=== PATIENT | female | born 1990 | race Caucasian/White ===

== ENCOUNTER 2017-07-09 04:31 | Emergency (ER) | payer OTHER ==
[~2017-07-09] VITALS: Ht 162.6 cm; Wt 63.7 kg
[2017-07-09 04:33] VITALS: BP 123/82
== END 2017-07-09 05:43 | disposition left against medical advice (07) ==
LOC: ED 05:36
DX: L03.114 Cellulitis of left upper limb (principal); L03.113 Cellulitis of right upper limb
CPT/HCPCS: 99281

== ENCOUNTER 2017-07-09 19:00 | Emergency (ER) | payer OTHER | END 2017-07-09 20:13 | disposition left against medical advice (07) | LOC: ED 20:07 | DX: Z53.21 Procedure and treatment not carried out due to patient leaving prior to being seen by health care provider (principal) ==

== ENCOUNTER 2017-07-10 21:28 | Emergency (ER) | payer MEDICAID, OTHER ==
[~2017-07-10] VITALS: Ht 162.6 cm; Wt 62.7 kg
[2017-07-10 21:32] VITALS: BP 129/85
[2017-07-10] MEDS ORDERED: LIDOCAINE 1%, 20ML INFIL ONE (22:30)
[2017-07-10] MEDS ORDERED: LIDOCAINE 1%, 20ML ONE (23:00)
== END 2017-07-10 23:44 | disposition left against medical advice (07) ==
LOC: ED 21:55
DX: L02.413 Cutaneous abscess of right upper limb (principal); L02.414 Cutaneous abscess of left upper limb; F11.10 Opioid abuse, uncomplicated; F41.9 Anxiety disorder, unspecified; Z59.0 Homelessness; Z86.19 Personal history of other infectious and parasitic diseases
CPT/HCPCS: 99281

== ENCOUNTER 2017-07-11 19:58 | Emergency (ER) | payer MEDICAID, OTHER ==
[~2017-07-11] VITALS: Ht 162.6 cm; Wt 63.4 kg
[2017-07-11 20:16] VITALS: BP 127/86
[2017-07-11] MEDS ORDERED: LIDOCAINE 1%, 20ML SQ ONE (20:30)
[2017-07-11] MEDS ORDERED: SODIUM CHLORIDE 0.9% 1,000ML IVBOLUS ONE (20:30)
[2017-07-11] MEDS ORDERED: SODIUM CHLORIDE FLUSH 10ML SYR IVF ONE (20:30)
[2017-07-11 21:36] LABS: HEMATOCRIT 46.5 % (34.6-47.8); HEMOGLOBIN 15.5 g/dL (11.7-16.4); WHITE BLOOD COUNT 15.9 x10^3/uL (3.4-10)
[2017-07-11 21:47] LABS: BLOOD UREA NITROGEN 8 mg/dL (7-18)
[2017-07-11 21:53] LABS: DIFF TOTAL CELLS COUNTED 100 CELL DIFF
[2017-07-11 21:55] LABS: ANISOCYTOSIS 1+; VERIFY COUNTS? YES
[2017-07-11] MEDS ORDERED: LIDOCAINE 1%, 20ML ONE (22:37)
[2017-07-12] MEDS ORDERED: LIDOCAINE 1%, 20ML SQ ONE
[2017-07-12] MEDS ORDERED: HYDROmorphone 1 MG/ML, 1ML IM ONE
[2017-07-12] MEDS ORDERED: HYDROmorphone 2 MG/ML, 1ML ONE (00:10)
[2017-07-12] MEDS ORDERED: CLINDAMYCIN PMX 600MG/50ML 50 ML IV ONE (02:00)
[2017-07-12] MEDS ORDERED: CLINDAMYCIN PMX 600MG/50ML 0 ML ONE (02:06)
[2017-07-12] MEDS ORDERED: CLINDAMYCIN 150 MG/ML, 6ML IM ONE (02:30)
== END 2017-07-12 02:35 | disposition left against medical advice (07) ==
LOC: ED 23:59
DX: L02.413 Cutaneous abscess of right upper limb (principal); L02.414 Cutaneous abscess of left upper limb; F11.10 Opioid abuse, uncomplicated; Z88.0 Allergy status to penicillin
CPT/HCPCS: 10061; 36415; 80048; 82040; 83605; 85025; 87040; 96372; 99284; J1170; 87076

== ENCOUNTER 2017-07-14 02:56 | Emergency (ER) | payer MEDICAID ==
[~2017-07-14] VITALS: Ht 162.6 cm; Wt 61.9 kg
[2017-07-14 02:57] VITALS: BP 138/86
[2017-07-14] MEDS ORDERED: CLINDAMYCIN PMX 900MG/50ML 50 ML ONE (03:38)
[2017-07-14] MEDS ORDERED: SODIUM CHLORIDE 0.9% 1,000 ML IV ONE (03:57)
[2017-07-14] MEDS ORDERED: SODIUM CHLORIDE 0.9% 1,000ML IVBOLUS ONE (04:00)
[2017-07-14] MEDS ORDERED: ONDANSETRON 2MG/ML, 2ML IVPush PRN (04:00)
[2017-07-14] MEDS ORDERED: CLINDAMYCIN PMX 900MG/50ML 50 ML IVPB ONE (04:00)
[2017-07-14] MEDS ORDERED: SODIUM CHLORIDE FLUSH 10ML SYR IVF ONE (04:00)
[2017-07-14 04:07] LABS: HEMATOCRIT 49.3 % (34.6-47.8); HEMOGLOBIN 16.4 g/dL (11.7-16.4); WHITE BLOOD COUNT 11.5 x10^3/uL (3.4-10)
[2017-07-14 04:13] LABS: BLOOD UREA NITROGEN 9 mg/dL (7-18)
== END 2017-07-14 05:34 | disposition left against medical advice (07) ==
LOC: ED 03:13 → EDIP 03:57 → UNDOADMIN 03:57 → ED 05:34
DX: L03.114 Cellulitis of left upper limb (principal); L03.113 Cellulitis of right upper limb; L02.414 Cutaneous abscess of left upper limb; L02.413 Cutaneous abscess of right upper limb; R78.81 Bacteremia
CPT/HCPCS: 36415; 80048; 82040; 85025; 87040; 96365; 99284; J7030